=== PATIENT | male | born 1960 | race Caucasian/White ===

== ENCOUNTER 2016-05-26 12:58 | Emergency (ER) | payer BC ==
[~2016-05-26] VITALS: Ht 177.8 cm; Wt 130.0 kg
[~2016-05-26 12:58] MED LIST: BACT800T5 PO; CEFT500T3 PO; METF-382 PO; VICT18IN SQ
[2016-05-26 13:03] VITALS: BP 144/84; PULSE 67; RESP 20; TEMP 98.3; O2SAT 95
--- NOTE | 2016-05-26 14:25 | PD ---
HPI Chief Complaint: Skin Problem Time Seen by Provider: 14:25 Travel History International Travel<30 days: No Contact w/Intl Traveler<30days: No Traveled to known affect area: No History of Present Illness HPI 55-year-old male who states he is not diabetic but takes metformin for insulin resistance presents to the emergency department for evaluation right lower extremity pain and swelling. Patient states last week he was bit by a neighbors dog. He did not seek treatment. He washed the puncture wound on the lateral aspect of the leg and applied Neosporin. He states he had a small scratch on the posterior leg that he didn't intend to. Began having fevers 2 days ago but states today they seem to be resolving. Noticed this morning that his right lower extremity was swollen and red. Has not been nauseous or vomiting. No chest pain or tightness. No difficulty breathing. He has no other symptoms to report. PFSH Past Medical History Blood Disorders: No Heart Rhythm Problems: No Cancer: No Cardiovascular Problems: No High Cholesterol: No Chest Pain: No Congestive Heart Failure: No Diabetes: Yes (pre-diabetic) Diminished Hearing: No Endocrine: No Genitourinary: No Musculoskeletal: Yes (chronic back pain) Neurologic: No Psychiatric: No Reproductive: No Respiratory: Yes Sleep Apnea: Yes (CPAP at night) Thyroid Disease: No Past Surgical History Other Surgery: Yes (LUMBAR DISCECTOMY ) Social History Alcohol Use: No Tobacco Use: No Substance Use: No Allergies-Medications (Allergen,Severity, Reaction): Coded Allergies: No Known Allergies (Verified , 05/26/16) Reported Meds & Prescriptions Reported Meds & Active Scripts Active Augmentin (Amoxicillin-Clavulanate) 875-125 mg Tab 875 Mg PO BID 10 Days not for use in CrCl <30 ml/min. Reported Metformin ER (Metformin HCl) 1,000 Mg Christiano 1,000 Mg PO DAILY With evening meal Review of Systems Except as stated in HPI: all other systems reviewed are Neg Physical Exam Narrative GENERAL: Well-nourished male patient, ambulatory and in no acute distress SKIN: Warm and dry. Scabbed over puncture wound on the lateral aspect of the right distal lower extremity. There is erythema with mild edema from this area distally on the right lower extremity. HEAD: Atraumatic. Normocephalic. EYES: Pupils equal and round. No scleral icterus. No injection or drainage. ENT: No nasal bleeding or discharge. Mucous membranes pink and moist. NECK: Trachea midline. No JVD. CARDIOVASCULAR: Regular rate and rhythm. No murmur appreciated. RESPIRATORY: No accessory muscle use. Clear to auscultation. Breath sounds equal bilaterally. GASTROINTESTINAL: Abdomen soft, non-tender, nondistended. Hepatic and splenic margins not palpable. MUSCULOSKELETAL: No obvious deformities. No clubbing. No cyanosis. Distal pulses are palpable. Cap refill is within normal limits. NEUROLOGICAL: Awake and alert. No obvious cranial nerve deficits. Motor grossly within normal limits. Normal speech. PSYCHIATRIC: Appropriate mood and affect; insight and judgment normal. Data Data Last Documented VS Vital Signs Date Time Temp Pulse Resp B/P Pulse Ox O2 Delivery O2 Flow Rate FiO2 05/26/16 13:03 98.3 67 20 144/84 95 Room Air Orders Complete Blood Count With Diff (05/26/16 14:24) Basic Metabolic Panel (Bmp) (05/26/16 14:24) Blood Culture (05/26/16 14:24) Influenzae A/B Antigen (05/26/16 14:24) Lactic Acid Sepsis Protocol (05/26/16 14:24) Tibia/Fibula (Ap/Lat) (05/26/16 ) Us Leg Venous Doppler (05/26/16 ) Tetanus/Diphtheria Tox Adult (Tetanus/Di (05/26/16 17:00) Labs Laboratory Tests Test 05/26/16 14:50 White Blood Count 7.2 TH/MM3 Red Blood Count 4.72 MIL/MM3 Hemoglobin 14.2 GM/DL Hematocrit 42.5 % Mean Corpuscular Volume 90.1 FL Mean Corpuscular Hemoglobin 30.2 PG Mean Corpuscular Hemoglobin 33.5 % Concent Red Cell Distribution Width 13.0 % Platelet Count 184 TH/MM3 Mean Platelet Volume 8.1 FL Neutrophils (%) (Auto) 68.0 % Lymphocytes (%) (Auto) 12.9 % Monocytes (%) (Auto) 14.2 % Eosinophils (%) (Auto) 4.1 % Basophils (%) (Auto) 0.8 % Neutrophils # (Auto) 4.9 TH/MM3 Lymphocytes # (Auto) 0.9 TH/MM3 Monocytes # (Auto) 1.0 TH/MM3 Eosinophils # (Auto) 0.3 TH/MM3 Basophils # (Auto) 0.1 TH/MM3 CBC Comment DIFF FINAL Differential Comment Sodium Level 141 MEQ/L Potassium Level 4.2 MEQ/L Chloride Level 105 MEQ/L Carbon Dioxide Level 26.9 MEQ/L Anion Gap 9 MEQ/L Blood Urea Nitrogen 19 MG/DL Creatinine 1.34 MG/DL Estimat Glomerular Filtration 55 ML/MIN Rate Random Glucose 95 MG/DL Lactic Acid Level 0.9 mmol/L Calcium Level 8.9 MG/DL MDM Medical Decision Making Medical Screen Exam Complete: Yes Emergency Medical Condition: Yes Medical Record Reviewed: Yes Differential Diagnosis Cellulitis versus foreign body versus abscess versus sepsis Narrative Course 55-year-old male presents to the emergency department for evaluation. Workup is initiated in triage. Once a medical bed becomes available, patient will be transferred and care assumed by that provider. CBC is without leukocytosis. BMP is without acute concern. Patient does have renal insufficiency. X-rays without acute bony abnormality. Ultrasound shows no DVT or localized abscess. I discussed these findings with my attending physician Dr. Ayala. He agrees the patient can be discharged home on oral antibiotics as he has not been trialed on outpatient treatment as of yet. Patient is in complete agreement with this plan. He is updated on his tetanus and discharged at this time. He agrees to return immediately with any acute worsening of symptoms. Diagnosis Primary Impression: Cellulitis Qualified Code: L03.115 - Cellulitis of right lower extremity Additional Impression: Dog bite of lower leg Qualified Code: S81.851A - Dog bite of lower leg, right, initial encounter Referrals: Primary Care Physician Patient Instructions: Animal Bite (ED), General Instructions Additional Instructions: Elevate to reduce pain and swelling Follow-up with the primary care provider Return immediately to the emergency department with any acute worsening of symptoms Med/Other Pt SpecificInfo: Prescription(s) given Scripts Amoxicillin-Clavulanate (Augmentin)875-125 mg [id number] Mg PO BID 10 Days Ref 0 not for use in CrCl <30 ml/min. Prov:Eri Mckee 05/26/16 Disposition: 01 DISCHARGE HOME Condition: Stable Eri Mckee May 26, 2016 14:25
[2016-05-26 15:12] LABS: AUTOMATED NEUTROPHIL # 4.9 TH/MM3 (1.8-7.7); BASOPHIL # 0.1 TH/MM3 (0-0.2); BASOPHIL % 0.8 % (0.0-2.0); EOSINOPHIL # 0.3 TH/MM3 (0-0.4); EOSINOPHIL % 4.1 % (0.0-4.0); HEMATOCRIT 42.5 % (39.0-51.0); HEMO FLAGS DIFF FINAL; LYMPH % 12.9 % (9.0-44.0); LYMPHOCYTE # 0.9 TH/MM3 (1.0-4.8); MEAN CELL VOLUME 90.1 FL (80.0-100.0); MEAN CORPUSCULAR HEMOGLOBIN 30.2 PG (27.0-34.0); MEAN CORPUSCULAR HGB CONC 33.5 % (32.0-36.0); MONO % 14.2 % (0.0-8.0); PLATELET COUNT 184 TH/MM3 (150-450); RED BLOOD COUNT 4.72 MIL/MM3 (4.50-5.90); WHITE BLOOD COUNT 7.2 TH/MM3 (4.0-11.0)
--- NOTE | 2016-05-26 15:19 | RADRPT ---
EXAM DATE/TIME: 05/26/2016 15:03 [facility] COMPARISON: No previous studies available for comparison. INDICATIONS : Dog bite posterior distal right tibia. MEDICAL HISTORY : None. SURGICAL HISTORY : None. ENCOUNTER: Initial ACUITY: 4 - 6 days PAIN SCORE: 3/10 LOCATION: Right distal tibia FINDINGS: Two view examination of the right tibia demonstrates no evidence of fracture or dislocation. Bony mi neralization is normal. Posterior soft tissue swelling. No foreign bodies. CONCLUSION: 1. Soft tissue swelling without fracture. Jeffrey Godwin MD on May 26, 2016 at 15:17 Board Certified Radiologist. This report was verified electronically.
[2016-05-26 15:33] LABS: BICARBONATE 26.9 MEQ/L (21.0-32.0); POTASSIUM 4.2 MEQ/L (3.5-5.1)
--- NOTE | 2016-05-26 16:38 | RADRPT ---
EXAM DATE/TIME: 05/26/2016 16:01 [facility] COMPARISON: US LEG RIGHT VENOUS DOPPLER, January 23, 2016, 9:27. INDICATIONS : Right leg swelling. MEDICAL HISTORY : Sleep apnea. Chronic back pain. Prediabetic. SURGICAL HISTORY : Right shoulder "slap lesion repair." lumbar discectomy. finger surgery. ENCOUNTER: Initial ACUITY: 2 weeks PAIN SCORE: 2/10 LOCATION: Right leg. TECHNIQUE: Venous ultrasound of the leg was performed from the inguinal ligament to the proximal calf. Real-tasha e, color Doppler and spectral tracing, compression and augmentation techniques were used. FINDINGS: There is normal compressibility of the deep venous system from the inguinal region to the proximal ca lf. No echogenic clot is seen in the lumen of the common femoral, femoral, popliteal, and posterior tibial veins. There is a normal response of the venous system to proximal and distal augmentation an d respiration. CONCLUSION: Negative for deep venous thrombosis. . Everett Maznano MD FACR on May 26, 2016 at 16:35 Board Certified Radiologist. This report was verified electronically.
[2016-05-26] MEDS ORDERED: AUGM875T PO (16:44)
[2016-05-26] MEDS ORDERED: TETANUS/DIPHTHERIA TOXOID ADULT 0.5 ML VIAL IM ONE (17:00)
== END 2016-05-26 17:10 | disposition home or self-care (01) ==
LOC: NETRI 12:58
DX: L03.115 Cellulitis of right lower limb (principal); S81.851A Open bite, right lower leg, initial encounter; R50.9 Fever, unspecified; R73.03 Prediabetes; N28.9 Disorder of kidney and ureter, unspecified; G47.30 Sleep apnea, unspecified; Z23 Encounter for immunization; Z87.39 Personal history of other diseases of the musculoskeletal system and connective tissue; Z87.09 Personal history of other diseases of the respiratory system; W54.0XXA Bitten by dog, initial encounter
CPT/HCPCS: 73590; 80048; 83605; 85025; 87040; 87804; 90471; 90714; 93971

== ENCOUNTER → 2017-06-04 | Day surgery (SDC) | payer SELFPAY ==
[~2017-06-04] VITALS: Ht 180.3 cm; Wt 129.4 kg
[~2017-06-04] MED LIST changes: +*morphine SULFATE 4 MG/ML PERIprocedure ONLY ONE; +ACETAMINOPHEN 1000 MG/100 ML 0 ML IV ONE; +ACETAMINOPHEN 1000 MG/100 ML 100 ML IV SCH; +ACETAMINOPHEN 325MG/HYDROcodone 7.5MG/15ML UDC PO ONE; +ACETAMINOPHEN 325MG/HYDROcodone 7.5MG/15ML UDC PO PRN; +APREPITANT 40 MG CAP PO SCH; +AUGM875T PO; -BACT800T5 PO; +BUPIVACAINE LIPOSOME PF 1.3% 20 ML VIAL ONE; +BUPIVACAINE/EPINEPHRINE 0.5% PF 30 ML VIAL ONE; -CEFT500T3 PO; +CHLORHEXIDINE GLUCONATE 2 % 1 PACK (2 CLOTHS) TOPICAL PRN; +D5-1/2 NS + KCL 20 MEQ INJ 1,000 ML IV SCH; +DO NOT ADM ANY ANTICOAGULANT DRUGS PRN; +ENOXAPARIN SODIUM 40 MG/0.4 ML SYRINGE SQ SCH; +FAMOTIDINE 20 MG/2 ML VIAL ONE; +GLYCOPYRROLATE 1 MG/5 ML SYRINGE IV PUSH ONE; +LACTATED RINGER'S 1000 ML INJ 1,000 ML IV ONE; +LACTATED RINGER'S 1000 ML IV PRN; +LIDOCAINE HCL 1% PF 5 ML SYRINGE OTHER ONE; +METOCLOPRAMIDE HCL 10 MG/2 ML VIAL IV PUSH PRN; +METOCLOPRAMIDE HCL 10 MG/2 ML VIAL IV PUSH SCH; +METOPROLOL TARTRATE 25 MG TAB PO PRN; +MIDAZOLAM HCL 2 MG/2 ML VIAL ONE; +NEOSTIGMINE 5 MG/5 ML SYRINGE IV PUSH ONE; +ONDANSETRON HCL 4 MG/2 ML VIAL IV PUSH PRN; +ONDANSETRON HCL 4 MG/2 ML VIAL IV PUSH SCH; +PANTOPRAZOLE SOD 40 MG DELAYED RELEASE TAB PO SCH; +POVIDONE IODINE 5% (ANTISEPSIS KIT) 4 APPLICATIONS EACH NARE PRN; +PROPOFOL 200 MG/20 ML AMP IV ONE; +Post-op Orders (for Pharmacy) OTHER ONE; +ROCURONIUM INJ 50 MG/5 ML SYRINGE IV PUSH ONE; +SCOPOLAMINE 1.5 MG PATCH T-DERMAL SCH; +SODIUM CHLORID 0.9% 500 ML IV PRN; +SODIUM CHLORIDE 0.9% 20 ML VIAL ONE; +SODIUM CHLORIDE 0.9% FLUSH 10 ML FLUSH IV FLUSH PRN; +SODIUM CHLORIDE 0.9% FLUSH 10 ML FLUSH IV FLUSH SCH; -VICT18IN SQ; +ceFAZolin 2 GM PREMIX 50 ML IV SCH; +ceFAZolin INJ 1,000 MG VIAL ONE; +diphenhydrAMINE HCL 50 MG/ML VIAL IV PUSH PRN; +diphenhydrAMINE HCL ELIXIR 12.5 MG/5 ML CUP PO PRN; +ePHEDrine/NS 25 MG/5 ML SYRINGE IV ONE; +metroNIDAZOLE 500 MG INJ 100 ML IV SCH
--- NOTE | 2017-06-04 10:46 | HHI.PR ---
Immediate Post Op Note Procedure Date: Jun 04, 2017 Pre Op Diagnosis: morbid obesity bmi 40, jonatan, gerd, preDM Post Op Diagnosis: same Surgeon: Navin Garcia MD Brown Sourer(s): benny Procedure: lap sleeve Findings: no leak on methylene blue, out pt Complications: none Specimen(s) removed: none Estimated blood loss: 15cc Anesthesia: General Drains: None IVF (1300) Patient to: PACU Patient Condition: Good Navin Garcia MD Jun 04, 2017 10:46
[2017-06-04 15:00] VITALS: BP 165/80; PULSE 54; RESP 20; TEMP 97.4; O2SAT 95
--- NOTE | 2017-06-05 07:45 | MP ---
cc: Navin Garcia MD DATE OF OPERATION: 06/04/2017 PREOPERATIVE DIAGNOSIS: Morbid obesity, BMI of 40, obstructive sleep apnea, prediabetes, reflux, hyperlipidemia. POSTOPERATIVE DIAGNOSIS: Morbid obesity, BMI of 40, obstructive sleep apnea, prediabetes, reflux, hyperlipidemia. PROCEDURE PERFORMED: Laparoscopic sleeve gastrectomy. SURGEON: Navin Garcia MD MELT ROOM OPERATOR: Crissy. ANESTHESIA: GETA. IV FLUIDS: 1300 mL. ESTIMATED BLOOD LOSS: 15 mL. DRAINS: None. COMPLICATIONS: None. WOUND CLASSIFICATION: Clean, contaminated. SPECIMENS: None. FINDINGS: No leak with methylene blue. INDICATIONS: Patient is a 56-year-old male who presents with multiple attempts at weight loss without success. Discussion for bariatric surgery. Patient with multiple co-morbidities including BMI of 40, obstructive sleep apnea, hypercholesterolemia, and reflux. DETAILS OF THE PROCEDURE: The patient was taken to the operating room suite, placed in the supine position. He was prepped and draped in the usual sterile fashion after induction of general endotracheal anesthesia. A brief time-out done stating correct patient, procedure and surgical site. All were in agreement with this. Attention first directed to 15 cm distal to the xiphoid. Local anesthetic then used. A skin incision was made with an 11 blade. A 5 mm Optiview port was placed under direct visualization. Pneumoperitoneum obtained. Several ports were placed including a right upper quadrant, a 5 mm port for liver retraction, right lower quadrant 15 mm port, left lower quadrant 5 mm port, no left lateral quadrant 5 mm port. Local anesthetic injected at all port sites. Port sites placed under direct vision. Patient placed in reverse Trendelenburg and left side placed up. A ilsa-flex retractor was placed. The left lobe of the liver was retracted in order to identify the ornelas structures of the surgery. Harmonic scalpel was used to transect the port to separate the stomach from the ligamentous attachments. Using a Harmonic scalpel carried 5 cm from the pylorus all the way to the angle of His. The angle of His was taken down bluntly. Some posterior ligamentous attachments were sharply dissected. Most attachments were left in place, however. A 36 ViSiGi bougie was advanced and placed to suction. Division of the stomach was done in order to create free gastrectomy over a 36 [place] ViSiGi bougie. This was done 5-10 mm from the pylorus carried all the way to the angle of His to remove approximately 80% of the stomach. This was done with an Endo-GI Dousman stapler using a black load, followed by green load and gold load. All niurka had Seamguard. This was done a distance 2 cm from the angle incisura and approximately 1 cm from the GE junction staple lines. Next, methylene blue was instilled without evidence of leaking. This was done x 2 of 60 mL. The gastrocolic ligament was noted to be hemostatic. Evicel used in place of bleeding points. Distal staple line 5 mm clips were placed. The stomach was removed, the excess that was excised, through the 15 mm port. The 15 mm port site was closed with 0 Vicryl. Pneumoperitoneum removed. Trocars were removed. All lap and instrument counts were correct at the end of the procedure. The patient tolerated the procedure. There were no intraoperative complications. The patient was extubated and taken stable to the PACU. MD SHAWNA Montes De Oca/ROMAIN , 10:11 PM , 07:44 AM
== END | disposition home or self-care (01) ==
LOC: HSDC 05:12
PROVIDERS: ATTEND Surgery
DX: E66.01 Morbid (severe) obesity due to excess calories (principal); Z68.41 Body mass index [BMI] 40.0-44.9, adult; G47.33 Obstructive sleep apnea (adult) (pediatric); R73.03 Prediabetes; K21.9 Gastro-esophageal reflux disease without esophagitis; E78.5 Hyperlipidemia, unspecified
CPT/HCPCS: 00797; 43775; C9290; J0131; J0690; J1650; J2250; J2270; J2405; J2710; J2765; J3010; J3480; J7120; J8501